=== PATIENT | female | born 1975 | race Caucasian/White ===

== ENCOUNTER → 2019-05-18 | Outpatient (CLI) | payer BC ==
--- NOTE | 2019-05-18 14:15 | CT ---
EXAMINATION TYPE: CT sinus wo con DATE OF EXAM: 05/18/2019 COMPARISON: None HISTORY: Chronic sinusitis. CT DLP: 641.6 mGycm. Automated Exposure Control for Dose Reduction was Utilized. TECHNIQUE: CT scan of the sinuses is performed without contrast, axial images are obtained, coronal r eformatted images are also reviewed. FINDINGS: There is mild mucosal thickening involving the ethmoid air cells and right maxillary sinus. There is mild to moderate mucosal thickening involving the left maxillary sinus with localized thick ening near the ostium of the maxillary sinus. There is occlusion of the left ostiomeatal complex. Mil d mucosal thickening involving the inferior margin of frontal sinus. No significant changes involving the sphenoid sinus. No air-fluid levels. There is a nasal septal deviation. Intracranial and intraorbital structures are symmetric. Nasopharynx and oropharynx symmetric. Visuali zed portion of mastoid air cells show no abnormal opacification. The globes are intact bilaterally. IMPRESSION: 1. Findings compatible with mild to moderate mucosal thickening with a localized thickening involving the ostium of the maxillary sinus resulting in occlusion of the left ostiomeatal complex. Findings m ost typical of chronic sinusitis. 2. Nasal septal deviation.
== END | disposition home or self-care (01) ==
LOC: RADCTMAIN 13:50
PROVIDERS: ATTEND Otolaryngology
DX: J34.2 Deviated nasal septum (principal); J34.89 Other specified disorders of nose and nasal sinuses
CPT/HCPCS: 70486

== ENCOUNTER → 2019-05-18 | Outpatient (CLI) | payer BC ==
[2019-05-21 11:15] LABS: Honeybee Venom IgE Class CLASS 2; Yellow Jacket IgE Class CLASS 2
[2019-05-21 11:16] LABS: Paper Wasp IgE 0.34 kU/L (<0.10); Paper Wasp IgE Class CLASS 0/1
[2019-05-21 11:17] LABS: Yellow Hornet IgE 0.13 kU/L (<0.10); Yellow Hornet IgE Class CLASS 0/1
== END | disposition home or self-care (01) ==
LOC: LABWHC1 14:20
PROVIDERS: ATTEND Otolaryngology
DX: J30.89 Other allergic rhinitis (principal); Z91.030 Bee allergy status
CPT/HCPCS: 36415; 86003

== ENCOUNTER 2020-03-19 11:06 | Day surgery (SDC) | payer BC ==
[2020-03-17 12:57] VITALS: BMI 24.7
[~2020-03-19 11:06] MED LIST: CLINDAMYCIN 600 MG in DEXTROSE 5% IN WATER 50 ML IVPB PRN; DEXAMETHASONE SOD PHOSPHATE 4 MG/ML 1 ML VIAL IV ONE; DEXAMETHASONE SOD PHOSPHATE 4 MG/ML 1 ML VIAL IV PRN; FAMOTIDINE 20 MG/2 ML VIAL IV PRN; HYDROmorphone 0.5 MG/0.5 ML SYRINGE IVP PRN; LACTATED RINGERS 1,000 ML IV SCH; ONDANSETRON 4 MG/2 ML VIAL IVP ONE; ONDANSETRON 4 MG/2 ML VIAL IVP PRN
[2020-03-19] MEDS: OXYMETAZOLINE 0.05% NASL SPRAY 1 SPRAY BOTTLE NASAL PRN ×5 (11:45→12:05)
[2020-03-19] MEDS ORDERED: MIDAZOLAM 2 MG/2 ML VIAL IVP ONE (12:00)
[2020-03-19] MEDS ORDERED: SUCCINYLCHOLINE CHLORIDE 100 MG/5 ML SYR IV ONE (12:24)
[2020-03-19] MEDS ORDERED: fentaNYL (PF) 50 MCG/ML 2 ML AMP ONE (12:24)
[2020-03-19] MEDS ORDERED: DEXAMETHASONE SOD PHOSPHATE 10 MG/ML 1 ML VIAL ONE (12:24)
[2020-03-19] MEDS ORDERED: MIDAZOLAM 2 MG/2 ML VIAL ONE (12:24)
[2020-03-19] MEDS ORDERED: PROPOFOL 10 MG/ML 20 ML VIAL IV ONE (12:24)
[2020-03-19] MEDS ORDERED: LIDOCAINE 1% INJ 10MG/ML (20 ML MDV) ONE (12:24)
[2020-03-19] MEDS ORDERED: LIDOCAINE 1%-EPI 1:100,000 20 ML VIAL SQ ONE ×2 (13:00→13:38)
[2020-03-19] MEDS ORDERED: BACITRACIN ZINC 500 UNIT/GM OINT 28.4 GM TUBE TOPICAL ONE (13:00)
[2020-03-19 14:01] VITALS: TEMP 97.6
--- NOTE | 2020-03-19 14:09 | P.OP ---
Date of Procedure: 03/19/20 Preoperative Diagnosis: Deviated nasal septum Inferior turbinate hypertrophy Chronic sinusitis Postoperative Diagnosis: Same Procedure(s) Performed: Dr. lee Outfracture and submucous section inferior turbinates Bilateral endoscopic sinus surgery including bilateral maxillary antrostomy bilateral anterior and posterior ethmoidectomy bilateral frontal sinusotomy including balloon sinus plasty Anesthesia: TOMAS Surgeon: Dvaidson Shah Estimated Blood Loss (ml): 10 Pathology: other (Nasal septal bone and cartilage and sinus contents) Condition: stable Disposition: PACU Indications for Procedure: Patient has chronic nasal airway obstruction congestion and chronic sinusitis wi th CT evidence also. Operative Findings: Nasal septum deviated the right with inferior turbinate hypertrophy bilaterally and chronic sinusitis involving the bilateral maxillary sinuses ethmoid sinuses and frontal sinuses. Ostiomeatal complexes were obstructed. Description of Procedure: The patient was brought into the operative suite and placed in a supine position. The patient underwent induction of general anesthesia with oral endotracheal intubation without difficulty. The patient was prepped and draped in the usual aseptic fashion with the orbits in the operating field for monitoring to the case and the computed tomography scan was on the computer screen for review throughout the case. 1% lidocaine with 1 :100,000 epinephrine was infused submucosally into both sides of the nasal septum as well as the lateral nasal wall and anterior tips of the middle turbinates. While this was taking vasoconstrictive effect the inferior turbinates were infractured with [place] elevator and partial submucous resection of the inferior turbinates was performed with a portion of the submucosal soft tissue and the inferior turbinate bone removed with Coblation device. The inferior turbinates were then outfractured with the [place] elevator. A left hemitransfixion incision was then made with the mucoperichondrial and mucoperiosteal flap on the left elevated. The bony cartilaginous junction was disarticulated and the mucoperiosteal flap on the right was elevated. Bony nasal septal deformities were removed with Chevy forceps and an inferior cartilaginous strip was removed leaving a full 1.5 cm caudal strut. Checking intranasally this corrected the nasoseptal deformities and the hemitransfixion incision was closed with a running 4-0 chromic suture. Full 0 endoscopic examination is performed bilaterally. Beginning on the left, the middle turbinate was medialized. The maxillary ostium was located with a ballpoint probe and an infundibulotomy was performed followed by uncinectomy. The maxillary antrostomy was enlarged at the expense of the anterior and posterior fontanelle taking care anteriorly not to injure the lacrimal bone. The maxillary sinus was evaluated with 30 and 70 endoscope .[Abnormal appearing tissue was removed from the maxillary sinus]. Anterior and posterior ethmoidectomy were then performed from anterior to posterior to the level of the skull base. The roof of the anterior ethmoid air cells were then cleaned from posterior to anterior using up-biting Blakesley forceps. A balloon sinuplasty of the frontal sinus was then performed using the entellus guided light wire technique. The frontal sinus was then explored with 30 endoscope.[Abnormal tissue was removed from the frontal sinus with giraffe forceps. Attention was then turned to the right where the procedures were followed as they had been on the left. [Nasopore nasal dressing was placed in the middle meatus bilaterally under dire ct visualization]. Bilateral Vasques airway splints coated with bacitracin ointment were placed and sutured transseptally with a 4-0 nylon suture. The patient was suctioned in oral gastric fashion and was allowed to emerge from general anesthesia having tolerated procedure well and was extubated in the operating suite and transferred to the postoperative recovery area in satisfactory condition.
[2020-03-19 14:56] VITALS: RESP 16
[2020-03-19] MEDS ORDERED: HYDROcodone/APAP 15 ML SOLUTION PO ONE (15:15)
[2020-03-19] MEDS ORDERED: HYDROcodone/APAP 15 ML SOLUTION ONE (15:27)
[2020-03-19] MEDS ORDERED: HYDROcodone/APAP 5-325MG 1 EACH TAB ONE (15:36)
[2020-03-19 16:06] VITALS: BP 128/82; PULSE 75
== END 2020-03-19 16:15 | disposition home or self-care (01) ==
LOC: OR 11:06
PROVIDERS: ATTEND Otolaryngology
DX: J32.9 Chronic sinusitis, unspecified (principal); J34.2 Deviated nasal septum; J34.3 Hypertrophy of nasal turbinates; D64.9 Anemia, unspecified; G43.909 Migraine, unspecified, not intractable, without status migrainosus; Z90.711 Acquired absence of uterus with remaining cervical stump; Z98.891 History of uterine scar from previous surgery; Z98.890 Other specified postprocedural states; Z79.891 Long term (current) use of opiate analgesic; Z79.899 Other long term (current) drug therapy; Z91.030 Bee allergy status; Z91.041 Radiographic dye allergy status; Z88.0 Allergy status to penicillin; Z91.048 Other nonmedicinal substance allergy status; Z87.891 Personal history of nicotine dependence
CPT/HCPCS: 88305; 88300; 31267; 31253; 30520; 30140; C1726; J2250; J1100 ×2; J2405; J2001; J3010; J0330; J2704; J1170

== ENCOUNTER → 2023-08-22 | Outpatient (CLI) | payer BC ==
--- NOTE | 2023-08-22 12:15 | FL ---
Exam Date: 08/22/2023 11:45 AM. Modified barium swallow for dysphagia. Consistencies administered: Various consistency of barium. Fluoro time: 1 minute 31 No images were sent to PACS. Please see speech pathology report. DAP: Not reported mGym2 Gycm2
== END | disposition home or self-care (01) ==
LOC: RADFLMAIN 11:17
DX: K22.0 Achalasia of cardia (principal); R13.10 Dysphagia, unspecified
CPT/HCPCS: 74230

== ENCOUNTER 2023-08-26 10:05 | Day surgery (SDC) | payer BC ==
[2023-08-24 12:44] VITALS: BMI 21.7
[2023-08-26] MEDS: LACTATED RINGERS 1,000 ML IV SCH (10:58)
[2023-08-26 11:28] VITALS: TEMP 98.6
[2023-08-26] MEDS ORDERED: PROPOFOL 10 MG/ML 20 ML VIAL IV ONE (12:00)
[2023-08-26] MEDS ORDERED: LIDOCAINE 1% INJ 10MG/ML (20 ML MDV) ONE (12:00)
--- NOTE | 2023-08-26 12:13 | P.PCN ---
Date of Procedure: 08/26/23 Procedure(s) Performed: BRIEF HISTORY: Patient is a 48-year-old, pleasant, white female with history of esophageal achalasia diagnosed in 2003 s/p Heller's myotomy at [facility]. Patient was doing reasonably well but for the last 6 weeks has been having worsening dysphagia with passive regurgitation.. PROCEDURE PERFORMED: Esophagogastroduodenoscopy with biopsy and dilation. PREOPERATIVE DIAGNOSIS: History of esophageal achalasia s/p Heller's myotomy in 2003. Now with worsening dysphagia. IV sedation per anesthesia. PROCEDURE: After informed consent was obtained, the patient was brought into the endoscopy unit. IV sedation was administered by Anesthesia under continuous monitoring. Initially the Olympus GIF-140 video endoscope was inserted into the mouth. Esophagus intubated without any difficulty. It was gradually advanced into the stomach and duodenum and carefully examined. The bulb and the second part of the duodenum appeared normal. The scope at this time was withdrawn to the stomach, adequately insufflated with air, and upon careful examination, mucosa of the antrum, body, cardia and the fundus appeared normal. The scope was then withdrawn into the esophagus. The GE junction was located at 41 cm from the incisors. The distal esophagus appeared slightly tortuous with some tightness of the lower esophageal sphincter but no obvious stricture identified. At this time I proceeded with empiric dilation using 18 to 20 mm TTS balloon in sequential fashion for 30 seconds. The entire esophagus appeared normal. There were no erosions or ulcerations seen. There was no retained food noted in the esophagus. Biopsies were done from the distal esophagus and the patient tolerated the procedure well. IMPRESSION: 1. Slightly tortuous distal esophagus with mild tightness of the lower esophageal sphincter s/p empiric dilation using 18 to 20 mm TTS balloon as de scribed above. 2. No obvious esophageal stricture identified 3. No retained food in the esophagus. RECOMMENDATIONS: The findings of this examination were discussed with the patient as well as her family. She was advised to be on a clear liquid diet today.. Await biopsy results. Trial of Prilosec 40 mg daily. Follow-up in the office in 2 weeks.
[2023-08-26 13:23] VITALS: BP 113/80; PULSE 79; RESP 16
== END 2023-08-26 13:31 | disposition home or self-care (01) ==
LOC: ORWHC2ENDO 10:05
PROVIDERS: ATTEND Internal Medicine Gastroenterology
DX: R13.10 Dysphagia, unspecified (principal)
CPT/HCPCS: 43239; 43249; J2001; J2704; C1726; 88305